=== PATIENT | male | born 1990 | race African-American/Black ===

== ENCOUNTER 2016-05-03 14:30 | Emergency (ER) | payer SELFPAY | END 2016-05-03 16:10 | disposition home or self-care (01) | LOC: D.ER 14:30 | DX: Z04.1 Encounter for examination and observation following transport accident (principal); F12.90 Cannabis use, unspecified, uncomplicated; F17.200 Nicotine dependence, unspecified, uncomplicated; V49.9XXA Car occupant (driver) (passenger) injured in unspecified traffic accident, initial encounter; Y93.89 Activity, other specified; Y92.89 Other specified places as the place of occurrence of the external cause ==